=== PATIENT | female | born 1950 | race Caucasian/White ===

== ENCOUNTER 2017-05-14 14:09 | Emergency (ER) | payer MEDICARE ==
[2017-05-14] MEDS ORDERED: Lidocaine 1% PF 5 ML VIAL ONE (14:33)
[2017-05-14] MEDS ORDERED: Adacel (T-DAP) 0.5 ML VIAL ONE (14:33)
[2017-05-14] MEDS ORDERED: Bacitracin Zinc 1 Packet ONE (15:09)
== END 2017-05-14 15:10 | disposition home or self-care (01) ==
LOC: SCSER 14:09
DX: S61.217A Laceration without foreign body of left little finger without damage to nail, initial encounter (principal); I10 Essential (primary) hypertension; W26.8XXA Contact with other sharp object(s), not elsewhere classified, initial encounter; Y93.G3 Activity, cooking and baking
CPT/HCPCS: 12001; 90471; 90715; J2001

== ENCOUNTER 2017-07-24 22:25 | Emergency (ER) | payer MEDICARE ==
[2017-07-24] MEDS ORDERED: Azithromycin 250 MG TAB ONE (23:24)
[2017-07-24] MEDS ORDERED: 1/2 NS w/KCL 20 mEq 0 ML ONE (23:24)
--- NOTE | 2017-07-24 23:26 | RAD ---
CHEST TWO VIEW: History: Cough, congestion. Comparison: None. FINDINGS: There is a faint right basilar airspace opacity. The rest of the lungs appear relatively clear. No pn eumothorax or effusion, cardiac silhouette or osseous abnormality. IMPRESSION: Faint right basilar airspace opacity concerning for possible infection. Follow up recommended. POS: JOSE ANGEL
== END 2017-07-24 23:20 | disposition home or self-care (01) ==
LOC: SCSER 22:25
DX: J18.9 Pneumonia, unspecified organism (principal); I10 Essential (primary) hypertension
CPT/HCPCS: 71046

== ENCOUNTER 2018-08-20 12:12 | Outpatient (CLI) | payer MEDICARE ==
[~2018-08-20 12:12] MED LIST: Iopamidol 370 76% 100 ML VIAL ONE
--- NOTE | 2018-08-20 15:00 | CT ---
CTA CHEST: Multiple axial tomograms obtained through the chest following an angio protocol with multiplanar meghana nstruction and 3D post processing. INDICATION: Giant cell arteritis. FINDINGS: Thoracic aorta appears unremarkable. There are mild atherosclerotic changes present. No dissection or aneurysmal dilatation. Ascending aorta measures 3.1 cm diameter. The mid descending aorta measur es 2.5 cm diameter. The origin of the arch arteries appears unremarkable. Innominate artery, common carotid, and left esparza bclavian artery origin at the arch appear unremarkable. The subclavian arteries appear unremarkable bilaterally. The proximal vertebral arteries are identified and appear unremarkable. The origin of the right common carotid is unremarkable. Pulmonary arteries are opacified. There is no evidence of pulmonary embolus. Mediastinum unremarkable with no evidence of adenopathy. The lungs are well aerated and clear of infiltrate. No effusion. No mass or pulmonary nodule. Ther e is some mild posterior pleural thickening with some mild pleural nodularity which appears benign. Osseous structures unremarkable. IMPRESSION: Unremarkable CTA chest. POS: JOSE ANGEL
== END 2018-08-20 12:13 | disposition home or self-care (01) ==
LOC: BICCT 12:12
PROVIDERS: ATTEND Internal Medicine Cardiovascular Disease
DX: M31.6 Other giant cell arteritis (principal)
CPT/HCPCS: 71275; 82565; Q9967